=== PATIENT | male | born 1965 | race Caucasian/White ===

== ENCOUNTER 2019-07-26 16:32 | Emergency (ER) | payer OTHER ==
[~2019-07-26] VITALS: Ht 182.9 cm; Wt 99.8 kg
[2019-07-26 16:49] VITALS: BP_SYST 137
--- NOTE | 2019-07-26 16:55 | NUR ---
Patient triaged and placed in waiting room. VSS and patient appears in no acute distress at this time. Awaiting available bed, and MD notified of need for MSE.
--- NOTE | 2019-07-26 17:20 | NUR ---
Patient to ER bed 4 to gown for evaluation. Side rails up. Report given to DAPHNE Faith.
--- NOTE | 2019-07-26 17:28 | NUR ---
pt arrives from from pt stated that he was trying to get into an fire truck and did a "twisting motion" w/ his right thigh when he felt has if something "popped" and has been having pain ever since. No other c/o at the moment.
--- NOTE | 2019-07-26 17:30 | NUR ---
ER at bedside examining patient.
[2019-07-26] MEDS ORDERED: KETOROLAC TROMETHAMINE 60 MG/2 ML VIAL IM ONE (17:45)
--- NOTE | 2019-07-26 17:51 | NUR ---
medicated the pt w/ Toradol per md order. Will reasess
--- NOTE | 2019-07-26 17:55 | NUR ---
Patient transported to radiology via , accompanied by director trading.
[2019-07-26 18:52] VITALS: BP_SYST 137
--- NOTE | 2019-07-26 18:53 | NUR ---
Patient given written and verbal discharge instructions and verbalizes understanding. ER MD discussed with patient the results and treatment provided. Patient in stable condition. ID arm band removed. Rx of Motrin and Tramadol given. Patient educated on pain management and to follow up with PMD. Pain Scale 3/10. Opportunity for questions provided and answered. Medication side effect fact sheet provided.
== END 2019-07-26 18:52 | disposition home or self-care (01) ==
LOC: SED 16:32
DX: S76.911A Strain of unspecified muscles, fascia and tendons at thigh level, right thigh, initial encounter (principal); X50.1XXA Overexertion from prolonged static or awkward postures, initial encounter; Y93.39 Activity, other involving climbing, rappelling and jumping off; Y92.89 Other specified places as the place of occurrence of the external cause; Y99.8 Other external cause status
CPT/HCPCS: 73552; 96372; 99283; J1885

== ENCOUNTER 2021-01-24 10:48 | Emergency (ER) | payer OTHER ==
[~2021-01-24] VITALS: Ht 182.9 cm; Wt 97.5 kg
--- NOTE | 2021-01-24 11:10 | NUR ---
Patient triaged and placed in waiting room. VSS and patient appears in no acute distress at this time. Accompanied by self, awaiting available bed, and MD notified of need for MSE.
[2021-01-24 11:14] VITALS: BP_SYST 126
--- NOTE | 2021-01-24 11:15 | NUR ---
Pt brought by self, A&Ox4, pt presents to ER with lower back pain , pt states he missed a step when he got out a truck, pt ambulatory, respirations even and unlabored
--- NOTE | 2021-01-24 13:26 | NUR ---
PT LEFT WITHOUT BEING SEEN
== END 2021-01-24 13:26 | disposition left against medical advice (07) ==
LOC: SED 10:48
DX: M54.9 Dorsalgia, unspecified (principal); Z53.21 Procedure and treatment not carried out due to patient leaving prior to being seen by health care provider